=== PATIENT | male | born 1960 | race Two or more races ===

== ENCOUNTER 2025-03-29 13:50 | Outpatient (REF) | payer OTHER, SELFPAY ==
[2025-03-29 14:56] LABS: Alanine Aminotransferase 27 U/L (0-40); Albumin Level 4.2 g/dL (3.5-5.0); Alkaline Phosphatase 49 U/L (39-117); Anion Gap 11 (12-20); Aspartate Amino Transferase 28 U/L (5-37); Bilirubin Direct 0.2 mg/dL (0.0-0.5); Bilirubin Total 0.6 mg/dL (0.0-1.0); Blood Urea Nitrogen 9 mg/dL (9-16); Carbon Dioxide 29 mmol/L (22-29); Chloride 102 mmol/L (96-108); Estimated Glomerular Filt Rate > 60; Glucose Random 100 mg/dL (60-115); Potassium 4.1 mmol/L (3.3-5.1); Sodium 138 mmol/L (135-145); Total Protein 7.5 g/dL (6.5-8.0)
--- OUTSIDE RECORDS SUMMARY | 2025-03-29 15:09 | XMS_ITS | Clinical Summary ---
Author Organization 175 [facility] Address [address] [place] [address] Phone Care Team Providers Care Dispatcher Tow Truck Name Role Phone Jeff Torres MD Primary Care Provider Allergies No known active allergies Medications miscellaneous medical supply kit Use with inhaler regularly. SPACER DEVICE-ADULT 5 Active sodium,potassium ,mag sulfates (Suprep Bowel Prep Kit) 17.5-3.13-1.6 gram recon soln bowel prep kit oral solution Take 177ML by mouth for 2 doses. SEE INSTRUCTIONS PROVIDED BY OFFICE. 1 kit 5 Active cholecalciferol (VITAMIN D-3) 50 mcg (2,000 unit) tablet Take 1 tablet (2,000 Units total) by mouth 1 (one) time each day. 90 each 3 5 026 Active cyanocobalamin 2,000 mcg tablet Take 1 tablet (2,000 mcg total) by mouth 1 (one) time each day. 90 tablet 3 5 026 Active albuterol HFA (PROAIR HFA ; PROVENTIL HFA ; VENTOLIN HFA) 90 mcg/actuation inhalerIndicatio ns:Mild intermittent asthma, unspecified whether complicated Inhale 2 puffs by mouth every 4 (four) hours if needed for wheezing. Cough 6.7 g 1 5 Active nutritional drink (Ensure High Protein) liquid Take 237 mL by mouth 3 (three) times a day. 90 each 5 5 025 Active bisacodyL (DULCOLAX) 5 mg EC tablet Take 2 tablets by mouth right before beginning bowel prep. See instructions provided by the office 2 tablet 5 Active polyethylene glycol (Golytely) 236-22.74-6.74 -5.86 gram solution Take 4L by mouth once for one dose. May substitue any PEG. Starting at 6PM the night before your procedure drink 1 8oz glasses at your own pace until you complete half of the gallon. Finish 2nd half of the gallon 5 hours before your procedure. 4000 mL 5 Active Active Problems Problem Noted Date Diagnosed Date Post herpetic neuralgia 10/24/2020 Right leg claudication ([facility] V24) 01/10/2020 Excessive drinking of alcohol 01/03/2020 Asthma 02/25/2014 Marijuana dependence ([facility] V24, [facility] V28) 04/20/2008 Smoking 02/10/2008 Encounters Date Type Department Care Team Description 02/03/2025 3:40 PM EDT - 02/03/2025 11:59 PM EDT Hospital Encounter [facility] CT Scan [address] [place] [phone] Encounter for screening for malignant neoplasm of respiratory organs; Nicotine dependence, cigarettes, uncomplicated Discharge Disposition: Home or Self Care 02/03/2025 3:30 PM EDT Office Visit Lung Screening Program - [place] [address] [facility] [address] [place] [phone] Lacy Julien PA Encounter for screening for malignant neoplasm of lung in current smoker with 30 pack year history or greater (Primary Dx) 01/31/2025 3:45 PM EDT Office Visit Internal Medicine [facility] [address] [facility] [address] [place] [phone] Jeff Torres MD Dizziness (Primary Dx); Dementia, unspecified dementia severity, unspecified dementia type, unspecified whether behavioral, psychotic, or mood disturbance or anxiety ([facility] V24, [facility] V28); Smoking; Tobacco dependency 01/13/2025 Telephone Internal Medicine - [place] [address] [phone] Jeff Torres MD Torres - Medication 01/10/2025 Telephone Internal Medicine [address] [phone] Jeff Torres MD Dizziness 01/07/2025 Telephone Internal Medicine [address] [phone] Jeff Torres MD Khan: Fax labs and EKG 01/04/2025 3:15 PM EST Office Visit Internal Medicine [address] [phone] Jeff Torres MD Adult general medical examination (Primary Dx); Mild intermittent asthma, unspecified whether complicated; Marijuana dependence (CMS/HCC V24, CMS/HCC V28); Smoking; Excessive drinking of alcohol; Tobacco dependency; Malnutrition, unspecified type (CMS/HCC V24); Other abnormal glucose; Other fatigue; Encounter for lipid screening for cardiovascular disease; Vitamin D deficiency from Last 3 Months Immunizations Name Administration Dates Next Due Pneumococcal polysaccharide 23 valent (Pneumovax 23) 2yo and older 01/03/2020 Tdap Tetanus diptheria acell ular pertussis (Boostrix; Adacel) 7yo and older 06/04/2012 Surgical History Surgery Date Site/Laterality Comments OTHER SURGICAL HISTORY PROCEDURE: DENIES PREVIOUS SURGERY Medical History Medical History Date Comments Asthma DX:Asthma Family History Medical History Relation Name Comments Other: Prostate cancer Brother Other: Prostate cancer, Diab etes, hypertension, dementia Father Diabetes Paternal Grandmother Blindness Neg Hx Cataracts Neg Hx Glaucoma Neg Hx Lung cancer Neg Hx Macular degeneration Neg Hx Strabismus Neg Hx Relation Name Status Comments Brother Alive prostate cancer Father Alive dm Mother Alive dm Paternal Grandfather prostat e cancer Paternal Grandmother Social History Tobacco Use Types Packs/Day Years Used Date Smoking Tobacco: Every Day Cigarettes 0.5 48.4 Started: 1976 Smokeless Tobacco: Never Alcohol Use Standard Drinks/Week Comments Yes 0 (1 standard drink = 0.6 oz pur e alcohol) Sex and Gender Information Value Date Recorded Sex Assigned at Not on file Legal Sex Male 9:12 AM EST Gender Identity Not on file Sexual Orientation Not on file Obstetrics History Last Filed Vital Signs Vital Sign Reading Time Taken Comments Blood Pressure 138/82 01/31/2025 3:48 PM EDT Pulse 78 01/31/2025 3:48 PM EDT Temperature 36.8 ??C (98.2 ??F) 02/03/2025 3:27 PM ED T Respiratory Rate - - Oxygen Saturation 98% 01/31/2025 3:48 PM EDT Inhaled Oxygen Concentration - - Weight 45.4 kg (100 lb) 02/18/2025 10:00 AM EDT Height 160 cm (5' 3 ) 02/18/2025 10:00 AM EDT Body Mass Index 17.71 02/18/2025 10:00 AM EDT Plan of Treatment Upcoming Encounters Date Type Department Care Team ([facility] st Contact Info) Description 07/04/2025 2:30 PM EDT Office Visit Internal Medicine - [place] [address] [phone] Jeff Torres MD 175 [facility] [address] [place] [address] Health Maintenance Due Date Last Done Comments Hepatitis A Vaccines (1 of 2 - Risk 2-dose series) 1979 Zoster Vaccines (1 of 2) 2010 RSV Immunization Adult Patients (1 - Risk 60-74 years 1-dose series) 2020 Pneumococcal Vaccine: 50+ Years (2 of 2 - PCV) 01/03/2021 01/03/2020 Pneumococcal Vaccine: Pediatrics (0 to 5 Years) and At-Risk Patients (6 to 64 Years) (2 of 2 - PCV) 01/03/2021 01/03/2020 DTaP,Tdap,and Td Vaccines (2 - Td or Tdap) 06/04/2022 06/04/2012 COVID-19 Vaccine ( - 2023-2 5 season) 2024 Colorectal Cancer Screening: Colonoscopy 12/07/2024 Depression Screening 12/07/2024 HIV Screening 12/07/2024 Social Influencers of Health Screening 12/07/2024 Influenza Vaccine (Season Ended) 2025 Lung Cancer Screening (Low Dose CT) 02/03/2026 02/03/2025 Cholesterol Screening (Lipid Panel) 01/04/2030 01/04/2025, 01/03/2020 Hepatitis C Screening Completed 01/03/2020 HIB Vaccines Aged Out No longer eligi ble based on patient's age to complete this topic HPV Vaccines Aged Out No longer eligi ble based on patient's age to complete this topic Hepatitis B Vaccines Aged Out No long er eligible based on patient's age to complete this topic IPV Vaccines Aged Out No longer eligi ble based on patient's age to complete this topic MMR Vaccines Aged Out No longer eligi ble based on patient's age to complete this topic Meningococcal ACWY Vaccine Aged Out N o longer eligible based on patient's age to complete this topic Meningococcal B Vaccine Aged Out No l onger eligible based on patient's age to complete this topic RSV Immunization Patients Under 20 months Aged Out No longer eligible b ased on patient's age to complete this topic Varicella Vaccines Aged Out No longer eligible based on patient's age to complete this topic Procedures Procedure Name Priority Date/Time Associated Diagnosis Comments ECG Routine 02/04/2025 2:[address] LUNG SCREENING Routine 02/03/2025 3:4 7 PM EDT Encounter for screening for malignant neoplasm of respiratory organs Nicotine dependence, cigarettes, uncomplicated CBC WITH AUTO DIFFERENTIAL Routine 01/04/2025 3:50 PM EST Other fatigue Adult general medical examination HEMOGLOBIN A1C Routine 01/04/2025 3:50 PM EST Malnutrition, unspecified type (CMS/HCC V24) Adult general medical examination VITAMIN D 25 HYDROXY Routine 01/04/2025 3:50 PM EST Vitamin D deficiency Adult general medical examination THYROID STIMULATING HORMONE WITH REFLEX TO FREE T4 AND FREE T3 Routine 01/04/2025 3:50 PM EST Other fatigue Adult general medical examination VITAMIN B12 Routine 01/04/2025 3:50 PM EST Other fatigue Adult general medical examination COMPREHENSIVE METABOLIC PANEL Routine 01/04/2025 3:50 PM EST Adult general medical examination CBC AND DIFFERENTIAL Routine 01/04/2025 3:50 PM EST Other fatigue Adult general medical examination LIPID PANEL WITH REFLEX TO DIRECT LDL Routine 01/04/2025 3:50 PM EST Encounter for lipid screening for cardiovascular disease Adult general medical examination HM HEPATITIS C SCREENING Routine 01/03/2020 from Last 3 Months or Most Recently Relevant to Health Maintenance Results * ECG (02/04/2025 2:39 PM EDT) Jeff Torres MD ECG ORDERABLES Final Result * CT Lung Screening (02/03/2025 3:47 PM EDT) Anatomical Region Laterality Modality Chest Computed Tomogra phy 02/03/2025 3:55 PM EDT Impressions 02/03/2025 3:58 PM EDT No suspicious pulmonary nodules. ASSESSMENT: LungRADS Category2: Benign Appearance/Behavior - Continue annual screening with LDCT in 12 months Please see below for additional details of LungRADS Algorithm. Complete Lung RADS description including probabilities of malignancy and prevalence can be found at: http://www.acr.org/Quality-Safety/Resources/LungRADS LungRADS Version 1.0 Assessment Categories Release date: March 14, 2014 Category 0: Incomplete - Additional lung cancer screening CT images and/or comparison with prior CT is needed. - Prior chest CT(s) being located for comparison. - Part or all of the lungs cannot be evaluated. Category 1: Negative - Continue annual screening with LDCT in 12 months - No lung nodules - Nodule(s) with specific calcifications (complete, central, popcorn, concentric rings) and fat containing nodules Category 2: Benign Appearance/Behavior - Continue annual screening with LDCT in 12 months - Solid nodule < 6 mm or new solid nodule < 4 mm. - Part solid nodule(s) < 6 mm total diameter on baseline screening. - Ground glass nodule < 20 mm or ? 20 mm and unchanged or slowly growing. - Category 3 or 4 nodules unchanged for at least 3 months. Category 3: Probably Benign - 6 month LDCT - Solid nodule(s) ? 6 to < 8 mm at baseline OR new 4 mm to < 6 mm. - Part solid nodule(s) ? 6 mm total diameter with solid component < 6 mm OR new < 6 mm total diameter. - Ground glass nodule ? [address] or new. Category 4A: Suspicious - 3 month LDCT; PET/CT may be used when there is ? 8 mm solid component - Solid nodule(s) ? 8 to < 15 mm at baseline OR growing < 8 mm OR new 6 to < 8 mm. - Part solid nodule(s) ? 6 mm with solid component ? 6 mm to < 8 mm OR with a new or growing < 4 mm solid component. - Endobronchial nodule. Category 4B: Suspicious - Chest CT with or without contrast, PET/CT and/or tissue sampling depending on the probability of malignancy and comorbidities. PET/CT may be used when there is a ? 8 mm solid component. - Solid nodule(s) ? 15 mm OR new or growing and ? 8 mm - Part solid nodule(s) with a solid component ? 8 mm OR a new or growing ? 4 mm solid component Category 4X: Suspicious - Chest CT with or without contrast, PET/CT and/or tissue sampling depending on the probability of malignancy and comorbidities. PET/CT may be used when there is a ? 8 mm solid component. - Category 3 or 4 nodules with additional features or imaging findings that increases the suspicion of malignancy. Category S: Clinically Significant or Potentially Clinically Significant Findings (non lung cancer) Category C: Modifier for patients with a prior diagnosis of lung cancer who return to screening NOTES: 1) Negative screen: does not mean that an individual does not have lung cancer. 2) Size: nodules should be measured on lung windows and reported as the average diameter rounded to the nearest whole number; for round nodules only a single diameter measurement is necessary. 3) Size Thresholds: apply to nodules at first detection, and that grow and reach a higher size category. 4) Growth: an increase in size of > 1.5 mm. 5) Exam Category: each exam should be coded 0-4 based on the nodule(s). 6) Exam Modifiers: S and C modifiers may be added to the 0-4 category. 7) Lung Cancer Diagnosis: Once a patient is diagnosed with lung cancer, further management (including additional imaging such as PET/CT) may be performed for purposes of lung cancer staging; this is no longer screening. 8) Practice audit definitions: a negative screen is defined as categories 1 and 2; a positive screen is defined as categories 3 and 4. 10) Category 4X: nodules with additional imaging findings that increase the suspicion of lung cancer, such as spiculation, GGN that doubles in size in 1 year, enlarged lymph nodes etc. 11) Nodules with features of an intrapulmonary lymph node should be managed by mean diameter and the 0-4 numerical category classification. 12) Category 3 and 4A nodules that are unchanged on interval CT should be coded as category 2, and individuals returned to screening in 12 months. 13) LDCT = low dose chest CT. -------- FINAL REPORT -------- Dictated By: Raina Andujar Dictated Date: 02/03/2025 15:55 ET Assigned Physician: Raina Andujar Reviewed and Electronically Signed By: Raina Andujar Signed Date: 02/03/2025 15:58 ET Workstation ID: [id number] Transcribed By: Self Edit Transcribed Date: 02/03/2025 15:55 ET Narrative 02/03/2025 3:58 PM EDT History: ??64 year-old 24 pack-year current smoker, asymptomatic, for lung cancer screening. Comparison: None Technique: Helical volumetric imaging of the thorax was performed, using low- dose technique, without IV contrast. DLP: 95 mGy/cm CT dose reduction technique utilized with one or more of the following: Automated exposure control and/or adjustment of the mA and/or kV according to patient size and/or use of iterative reconstruction technique. Findings: Lungs: Emphysematous changes with few paraseptal blebs at the apices. ??Calcified granuloma left lower lobe. ??Scattered nodules throughout both lungs measuring 3 mm or less. Pleura: There are no pleural effusions. ??No calcified or noncalcified pleural plaques. Heart/Aorta: Coronary artery calcifications. Esophagus: The esophagus is not significantly thickened or dilated. ?? Lymph Nodes:There are no enlarged thoracic lymph nodes. ?? Upper Abdomen: This study was performed without contrast and with lower than standard dose. These factors reduce the sensitivity for detection of small lesions in the upper abdomen. Unremarkable. Osseous Structures: No suspicious osseous abnormalities. Procedure Note Raina Andujar MD - 02/03/2025 History: 64 year-old 24 pack-year current smoker, asymptomatic, for lungcancer screening. Comparison: None Technique: Helical volumetric imaging of the thorax was performed, usinglow-dose technique, without IV contrast. DLP: 95 mGy/cm CT dose reduction technique utilized with one or more of the following:Automated exposure control and/or adjustment of the mA and/or kV accordingto patient size and/or use of iterative reconstruction technique. Findings: Lungs: Emphysematous changes with few paraseptal blebs at the apices.Calcified granuloma left lower lobe. Scattered nodules throughout bothlungs measuring 3 mm or less. Pleura: There are no pleural effusions. No calcified or noncalcifiedpleural plaques. Heart/Aorta: Coronary artery calcifications. Esophagus: The esophagus is not significantly thickened or dilated. Lymph Nodes:There are no enlarged thoracic lymph nodes. Upper Abdomen: This study was performed without contrast and with lowerthan standard dose. These factors reduce the sensitivity for detection ofsmall lesions in the upper abdomen. Unremarkable. Osseous Structures: No suspicious osseous abnormalities. IMPRESSION: No suspicious pulmonary nodules. ASSESSMENT: LungRADS Category2: Benign Appearance/Behavior - Continue annual screeningwith LDCT in 12 months Please see below for additional details of LungRADS Algorithm. CompleteLung RADS description including probabilities of malignancy and prevalencecan be found at: http://www.acr.org/Quality-Safety/Resources/LungRADS LungRADS Version 1.0 Assessment Categories Release date: March 14, 2014 Category 0: Incomplete - Additional lung cancer screening CT images and/orcomparison with prior CT is needed. - Prior chest CT(s) being located for comparison. - Part or all of the lungs cannot be evaluated. Category 1: Negative - Continue annual screening with LDCT in 12 months - No lung nodules - Nodule(s) with specific calcifications (complete, central, popcorn,concentric rings) and fat containing nodules Category 2: Benign Appearance/Behavior - Continue annual screening withLDCT in 12 months - Solid nodule < 6 mm or new solid nodule < 4 mm. - Part solid nodule(s) < 6 mm total diameter on baseline screening. - Ground glass nodule < 20 mm or ? 20 mm and unchanged or slowlygrowing. - Category 3 or 4 nodules unchanged for at least 3 months. Category 3: Probably Benign - 6 month LDCT - Solid nodule(s) ? 6 to < 8 mm at baseline OR new 4 mm to < 6 mm. - Part solid nodule(s) ? 6 mm total diameter with solid component < 6 mmOR new < 6 mm total diameter. - Ground glass nodule ? [address] or new. Category 4A: Suspicious - 3 month LDCT; PET/CT may be used when there is ?8 mm solid component - Solid nodule(s) ? 8 to < 15 mm at baseline OR growing < 8 mm OR new 6 to< 8 mm. - Part solid nodule(s) ? 6 mm with solid component ? 6 mm to < 8 mm ORwith a new or growing < 4 mm solid component. - Endobronchial nodule. Category 4B: Suspicious - Chest CT with or without contrast, PET/CT and/ortissue sampling depending on the probability of malignancy andcomorbidities. PET/CT may be used when there is a ? 8 mm solidcomponent. - Solid nodule(s) ? 15 mm OR new or growing and ? 8 mm - Part solid nodule(s) with a solid component ? 8 mm OR a new or growing ?4 mm solid component Category 4X: Suspicious - Chest CT with or without contrast, PET/CT and/ortissue sampling depending on the probability of malignancy andcomorbidities. PET/CT may be used when there is a ? 8 mm solidcomponent. - Category 3 or 4 nodules with additional features or imaging findingsthat increases the suspicion of malignancy. Category S: Clinically Significant or Potentially Clinically SignificantFindings (non lung cancer) Category C: Modifier for patients with a prior diagnosis of lung cancerwho return to screening NOTES: 1) Negative screen: does not mean that an individual does not have lungcancer. 2) Size: nodules should be measured on lung windows and reported as theaverage diameter rounded to the nearest whole number; for round nodulesonly a single diameter measurement is necessary. 3) Size Thresholds: apply to nodules at first detection, and that grow andreach a higher size category. 4) Growth: an increase in size of > 1.5 mm. 5) Exam Category: each exam should be coded 0-4 based on the nodule(s). 6) Exam Modifiers: S and C modifiers may be added to the 0-4 category. 7) Lung Cancer Diagnosis: Once a patient is diagnosed with lung cancer,further management (including additional imaging such as PET/CT) may beperformed for purposes of lung cancer staging; this is no longerscreening. 8) Practice audit definitions: a negative screen is defined as categories1 and 2; a positive screen is defined as categories 3 and 4. 10) Category 4X: nodules with additional imaging findings that increasethe suspicion of lung cancer, such as spiculation, GGN that doubles insize in 1 year, enlarged lymph nodes etc. 11) Nodules with features of an intrapulmonary lymph node should bemanaged by mean diameter and the 0-4 numerical category classification. 12) Category 3 and 4A nodules that are unchanged on interval CT should becoded as category 2, and individuals returned to screening in 12 months. 13) LDCT = low dose chest CT. -------- FINAL REPORT -------- Dictated By: Raina Andujar Dictated Date: 02/03/2025 15:55 ET Assigned Physician: Raina Andujar Reviewed and Electronically Signed By: Raina Andujar Signed Date: 02/03/2025 15:58 ET Workstation ID: [id number] Transcribed By: Self Edit Transcribed Date: 02/03/2025 15:55 ET Mitch Zendejas MD IMG CT PROCEDURES Final Result * Thyroid stimulating hormone with reflex to free t4 and free t3 (01/04/2025 3:50 PM EST) TSH 1.68 0.40 - 4.00 mcIU/mL LAB CHEMISTRY METHOD 01/04/2025 8:10 PM EST [facility] Blood Venous blood specimen / Unknown Venipuncture / Unknown 01/04/2025 3:50 PM EST 01/04/2025 3:50 PM EST Jeff Torres MD LAB BLOOD ORDERABLES Final Resul t [facility] [address] [place] [address], [place] [phone] * (ABNORMAL) Lipid panel with reflex to direct LDL (01/04/2025 3:50 PM EST) Pathologist [facility] Cholesterol 149 0 - 200 mg/dL LAB CHEMISTRY METHOD 01/04/2025 7:35 PM EST [facility] Triglycerides 266(H) 0 - 150 mg/dL LAB CHEMISTRY METHOD 01/04/2025 7:35 PM EST [facility] HDL 57 >=40 mg/dL LAB CHEMISTRY METHOD 01/04/2025 7:35 PM EST [facility] LDL Calculated 39 0 - 100 mg/dL LAB CHEMISTRY METHOD 01/04/2025 7:35 PM EST [facility] VLDL Cholesterol Nicko 53.2 mg/dL LAB CHEMISTRY METHOD 01/04/2025 7:35 PM EST [facility] Non HDL Chol. (LDL+VLDL) 92 <145 mg/dL LAB CHEMISTRY METHOD 01/04/2025 7:35 PM [facility] Chol/HDL Ratio 2.6 0.0 - 4.4 LAB CHEMISTRY METHOD 01/04/2025 7:35 PM EST [facility] Blood Venous blood specimen / Unknown Venipuncture / Unknown 01/04/2025 3:50 PM EST 01/04/2025 3:50 PM EST Jeff Torres MD LAB BLOOD ORDERABLES Final Resul t [facility] [address] [place] [address], * (ABNORMAL) CBC auto differential (01/04/2025 3:50 PM EST) [facility] WBC 6.1 4.8 - 10.8 K/mcL LAB HEMETOLOGY METHOD 01/04/2025 6:45 PM EST [facility] RBC 4.60 4.50 - 5.50 M/mcL LAB HEMETOLOGY METHOD 01/04/2025 6:45 PM EST [facility] Hemoglobin 16.5 13.5 - 17.5 g/dL LAB HEMETOLOGY METHOD 01/04/2025 6:45 PM [facility] Hematocrit 46.7 42.0 - 54.0 % LAB HEMETOLOGY METHOD 01/04/2025 6:45 PM [facility] MCV 101.1(H) 79.0 - 98.0 FL LAB HEMETOLOGY METHOD 01/04/2025 6:45 PM [facility] MCH 35.7(H) 27.0 - 32.0 pcg LAB HEMETOLOGY METHOD 01/04/2025 6:45 PM [facility] MCHC 35.3 32.0 - 37.0 g/dL LAB HEMETOLOGY METHOD 01/04/2025 6:45 PM [facility] RDW 12.8 11.0 - 15.0 % LAB HEMETOLOGY METHOD 01/04/2025 6:45 PM [facility] Platelets 257 130 - 400 K/mcL LAB HEMETOLOGY METHOD 01/04/2025 6:45 PM [facility] MPV 9.6 7.0 - 11.0 FL LAB HEMETOLOGY METHOD 01/04/2025 6:45 PM [facility] NRBC 0.0 <1.0 % LAB HEMETOLOGY METHOD 01/04/2025 6:45 PM [facility] NRBC Absolute 0.00 <0.10 K/mcL LAB HEMETOLOGY METHOD 01/04/2025 6:45 PM [facility] Neutrophils Relative 67.8 % LAB HEMETOLOGY METHOD 01/04/2025 6:45 PM [facility] Lymphocytes Relative 17.5 % LAB HEMETOLOGY METHOD 01/04/2025 6:45 PM [facility] Monocytes Relative 10.4 % LAB HEMETOLOGY METHOD 01/04/2025 6:45 PM [facility] Eosinophils Relative 3.0 % LAB HEMETOLOGY METHOD 01/04/2025 6:45 PM EST [facility] Basophils Relative 1.0 % LAB HEMETOLOGY METHOD 01/04/2025 6:45 PM EST [facility] Immature Granulocytes Relative 0.3 % LAB HEMETOLOGY METHOD 01/04/2025 6:45 PM EST [facility] Neutrophils Absolute 4.11 1.50 - 7.00 K/mcL LAB HEMETOLOGY METHOD 01/04/2025 6:45 PM EST [facility] Lymphocytes Absolute 1.06 1.00 - 5.00 K/mcL LAB HEMETOLOGY METHOD 01/04/2025 6:45 PM EST [facility] Monocytes Absolute 0.63 0.20 - 1.00 K/mcL LAB HEMETOLOGY METHOD 01/04/2025 6:45 PM EST [facility] Eosinophils Absolute 0.18 0.00 - 0.50 K/mcL LAB HEMETOLOGY METHOD 01/04/2025 6:45 PM EST [facility] Basophils Absolute 0.06 0.00 - 0.20 K/mcL LAB HEMETOLOGY METHOD 01/04/2025 6:45 PM EST [facility] Immature Granulocytes Absolute 0.02 0.00 - 0.03 K/mcL LAB HEMETOLOGY METHOD 01/04/2025 6:45 PM EST [facility] Blood Venous blood specimen / Unknown Venipuncture / Unknown 01/04/2025 3:50 PM EST 01/04/2025 3:50 PM EST us Jeff Torres MD LAB BLOOD ORDERABLES Final Resul t [facility] [address] [place] [address], * (ABNORMAL) Vitamin D 25 hydroxy (01/04/2025 3:50 PM EST) Vit D, 25-Hydroxy 10.5(L) 30.0 - 80.0 ng/mL LAB CHEMISTRY METHOD 01/04/2025 8:28 PM EST [facility] Blood Venous blood specimen / Unknown Venipuncture / Unknown 01/04/2025 3:50 PM EST 01/04/2025 3:50 PM EST Jeff Torres MD LAB BLOOD ORDERABLES Final Resul t Performing Organization Address City/[facility]/ZIP Co de Phone Number [facility] [address] [place] [address], [place] [phone] * Hemoglobin A1c (01/04/2025 3:50 PM EST) Pathologist [facility] Hemoglobin A1C 5.1 <6.5 % LAB CHEMISTRY METHOD 01/04/2025 9:26 PM EST [facility] Mean Bld Glu Estim. 100 mg/dL LAB CHEMISTRY METHOD 01/04/2025 9:26 PM EST [facility] Blood Venous blood specimen / Unknown Venipuncture / Unknown 01/04/2025 3:50 PM EST 01/04/2025 3:50 PM EST Jeff Torres MD LAB BLOOD ORDERABLES Final Resul t Performing Organization Address [facility]/ZIP Co de Phone Number [facility] [address] [place] [address], [place] [phone] * (ABNORMAL) Vitamin B12 (01/04/2025 3:50 PM EST) Pathologist [facility] Vitamin B-12 248(L) 250 - 900 pcg/mL LAB CHEMISTRY METHOD 01/04/2025 7:35 PM EST [facility] Blood Venous blood specimen / Unknown Venipuncture / Unknown 01/04/2025 3:50 PM EST 01/04/2025 3:50 PM EST Jeff Torres MD LAB BLOOD ORDERABLES Final Resul t [facility] [address] [place] [address], * Comprehensive metabolic panel (01/04/2025 3:50 PM EST) Sodium 140 133 - 145 mmol/L LAB CHEMISTRY METHOD 01/04/2025 7:35 PM EST [facility] Potassium 4.4 3.5 - 5.5 mmol/L LAB CHEMISTRY METHOD 01/04/2025 7:35 PM [facility] Chloride 106 96 - 110 mmol/L LAB CHEMISTRY METHOD 01/04/2025 7:35 PM [facility] CO2 24 21 - 32 mmol/L LAB CHEMISTRY METHOD 01/04/2025 7:35 PM [facility] Anion Gap 10 3 - 11 LAB CHEMISTRY METHOD 01/04/2025 7:35 PM [facility] Glucose 76 70 - 100 mg/dL LAB CHEMISTRY METHOD 01/04/2025 7:35 PM [facility] BUN 11 5 - 25 mg/dL LAB CHEMISTRY METHOD 01/04/2025 7:35 PM [facility] Creatinine 0.71 0.70 - 1.30 mg/dL LAB CHEMISTRY METHOD 01/04/2025 7:35 PM [facility] eGFR 102 >=60 mL/min/1. 73m2 LAB CHEMISTRY METHOD 01/04/2025 7:35 PM [facility] Comment:Calculation based on the??Chronic Kidney Disease Epidemiology Collaboration (CKD-EPI) equation refit??without adjustment for race. BUN/Creatinine Ratio 15.5 LAB CHEMISTRY METHOD 01/04/2025 7:35 PM [facility] Calcium 9.5 8.5 - 10.5 mg/dL LAB CHEMISTRY METHOD 01/04/2025 7:35 PM [facility] AST (SGOT) 18 10 - 42 unit/L LAB CHEMISTRY METHOD 01/04/2025 7:35 PM EST [facility] ALT (SGPT) 20 10 - 60 unit/L LAB CHEMISTRY METHOD 01/04/2025 7:35 PM [facility] Alkaline Phosphatase 51 42 - 121 unit/L LAB CHEMISTRY METHOD 01/04/2025 7:35 PM [facility] Total Protein 7.5 6.0 - 8.0 g/dL LAB CHEMISTRY METHOD 01/04/2025 7:35 PM [facility] Albumin 3.9 3.2 - 5.0 g/dL LAB CHEMISTRY METHOD 01/04/2025 7:35 PM [facility] Total Bilirubin 0.5 0.0 - 1.4 mg/dL LAB CHEMISTRY METHOD 01/04/2025 7:35 PM [facility] Blood Venous blood specimen / Unknown Venipuncture / Unknown 01/04/2025 3:50 PM EST 01/04/2025 3:50 PM EST Jeff Torres MD LAB BLOOD ORDERABLES Final Resul t [facility] [address] [place] [address], * Hepatitis C Screening (01/03/2020) Pathologist [facility] Hepatitis C Screening abstracted Historical Provider HEALTH MAINTENANCE Final Result from Last 3 Months or Most Recently Relevant to Health Maintenance Insurance [facility] [employer] Care Teams Dispatcher Tow Truck Relationship Specialty Start Date End Date Jeff Torres MD [address] [place] [id number] PCP - General Internal Medicine 12/07/24
[2025-03-29 15:35] LABS: Folate 8.9 ng/mL (> or = 4.0); Vitamin B12 595 pg/mL (200-900)
== END 2025-03-29 13:51 | disposition home or self-care (01) ==
LOC: HO.LAB 13:50
PROVIDERS: Visit Provider Psychiatry & Neurology Neurology
DX: G30.9 Alzheimer's disease, unspecified (principal)
CPT/HCPCS: 36415; 80053; 82248; 82607; 82746

== ENCOUNTER 2025-04-23 08:36 | Outpatient (REF) | payer OTHER, SELFPAY ==
--- NOTE | ~2025-04-23 | MR_ITS ---
EXAMINATION: MR BRAIN WITHOUT CONTRAST CLINICAL INFORMATION: Alzheimer's dementia. Memory changes. COMPARISON: None available. TECHNIQUE: MRI of the brain was obtained using routine sequences without contrast. In addition to standard sequences, a coronal T2 FLAIR sequence was also obtained. Examination performed on a 1.5 Mikala Siemens high-field unit. FINDINGS: There is no diffusion restriction. There is no intracranial hemorrhage, acute infarction, mass effect, or edema. Ventricles, sulci, and cisterns are mildly diffusely prominent in keeping with mildly age advanced cerebral and cerebellar involutional changes. There are no asymmetric pattern of atrophy present. Hippocampal formations are normal in volume and signal. There is no atrophy identified. No shift of midline. No pathologic foci of hemosiderin deposition identified. There are numerous scattered punctate and minimally confluent foci of white matter T2 hyperintensity in the periventricular, subcortical, and hemispheric deep white matter. These foci are nonspecific but statistically most likely represent sequela of small vessel ischemia. There are most notable in the bilateral frontal white matter. Midline structures appear normally formed. Partial empty sella present. Posterior fossa structures appear normal. Cerebellar tonsils are appropriately located. Major flow voids are preserved within the skull base. The globes and orbital contents demonstrate no abnormalities. Trace mucosal thickening present in the bilateral maxillary and ethmoid sinuses. Remainder of the paranasal sinuses, mastoid air cells, and tympanic cavities are normally aerated. Extracranial soft tissues demonstrate no abnormalities. No suspicious bone marrow changes are evident. Atlantoaxial joint demonstrates mild degenerative arthrosis. MR/MR head/brain wo con IMPRESSION: 1. There is no evidence of intracranial hemorrhage, acute infarction, mass effect, or edema. 2. Minimally age advanced cerebral and cerebellar involutional changes, without evidence for asymmetric pattern of atrophy. 3. There is no hippocampal atrophy or signal abnormality. 4. Mild changes of small vessel ischemia present, most notable in the frontal regions. Electronically signed by: Doe Kong MD 04/25/2025 08:49 AM EDT
--- OUTSIDE RECORDS SUMMARY | 2025-04-23 08:40 | XMS_ITS | Clinical Summary ---
Author Organization [address] [facility] Address [address] [place] [address] Phone Care Team Providers Care Fleet Service Manager Name Role Phone Jeff Torres MD Primary Care Provider [phone] Allergies No known active allergies Medications miscellaneous [...] Post herpetic neuralgia 10/24/2020 Right leg claudication ([facility] V24) 01/10/2020 Excessive drinking of alcohol 01/03/2020 Asthma 02/25/2014 Marijuana dependence ([facility] V24, [facility] V28) 04/20/2008 Smoking 02/10/2008 Encounters Date Type Department Care Team Description 02/03/2025 3:40 PM EDT - 02/03/2025 11:59 PM EDT Hospital Encounter [facility] CT Scan [address] [place] [phone] Encounter for screening for malignant neoplasm of respiratory organs; Nicotine dependence, cigarettes, uncomplicated Discharge Disposition: Home or Self Care 02/03/2025 3:30 PM EDT Office Visit Lung Screening Program - [place] [address] [facility] [address] [place] [phone] Lacy Julien PA Encounter for screening for malignant neoplasm of lung in current smoker with 30 pack year history or greater (Primary Dx) 01/31/2025 3:45 PM EDT Office Visit Internal Medicine - [place] [address] [facility] [address] [place] [phone] Jeff Torres MD Dizziness (Primary Dx); Dementia, unspecified dementia severity, unspecified dementia type, unspecified whether behavioral, psychotic, or mood disturbance or anxiety ([facility] V24, [facility] V28); Smoking; Tobacco dependency from Last 3 Months Immunizations Name Administration [...] Upcoming Encounters Date Type Department Care Team (Late st Contact Info) Description 07/04/2025 2:30 PM EDT Office Visit Internal Medicine - [address] [phone] Jeff Torres MD [address] [phone] Health Maintenance Due Date Last Done Comments [...] Td or Tdap) 06/04/2022 06/04/2012 COVID-19 Vaccine (1 - 2023-2 5 season) 2024 Colorectal Cancer [...] of respiratory organs Nicotine dependence, cigarettes, uncomplicated LIPID PANEL WITH REFLEX TO DIRECT LDL [...] Signed Date: 02/03/2025 15:58 ET Workstation ID: [id number] Transcribed By: Self Edit Transcribed Date: 02/03/2025 [...] Signed Date: 02/03/2025 15:58 ET Workstation ID: [id number] Transcribed By: Self Edit Transcribed Date: 02/03/2025 15:55 ET us Mitch Zendejas MD [facility] CT PROCEDURES Final Result * (ABNORMAL) Lipid panel with reflex to direct LDL (01/04/2025 3:50 PM EST) Cholesterol 149 0 - 200 mg/dL LAB CHEMISTRY METHOD 01/04/2025 7:35 PM [facility] Triglycerides 266(H) 0 - 150 mg/dL LAB CHEMISTRY METHOD 01/04/2025 7:[address] [facility] HDL 57 >=40 mg/dL LAB CHEMISTRY METHOD 01/04/2025 7:35 PM [facility] LDL Calculated 39 0 - 100 mg/dL LAB CHEMISTRY METHOD 01/04/2025 7:[address] [facility] VLDL Cholesterol Nicko 53.2 mg/dL LAB CHEMISTRY METHOD 01/04/2025 7:35 PM [facility] Non HDL Chol. (LDL+VLDL) 92 <145 mg/dL LAB CHEMISTRY METHOD 01/04/2025 7:[address] [facility] Chol/HDL Ratio 2.6 0.0 - 4.4 LAB CHEMISTRY METHOD 01/04/2025 7:[address] [facility] Blood Venous blood specimen / Unknown Venipuncture / Unknown 01/04/2025 3:50 PM EST 01/04/2025 3:50 PM EST Jeff Torres MD LAB BLOOD ORDERABLES Final Resul t [facility] [address] [place] [address], * Hepatitis C Screening (01/03/2020) Hepatitis C Screening abstracted Historical Provider HEALTH MAINTENANCE Final Result from Last 3 Months or Most Recently Relevant to Health Maintenance Insurance [facility] [place] [address] Care Teams Fleet Service Manager Relationship Specialty Start Date End Date Jeff Torres MD [address] [id number] PCP - General Internal Medicine 12/07/24
== END 2025-04-23 08:37 | disposition home or self-care (01) ==
LOC: HO.MRI 08:36
PROVIDERS: Visit Provider Psychiatry & Neurology Neurology
DX: G30.9 Alzheimer's disease, unspecified (principal)
CPT/HCPCS: 70551

== ENCOUNTER → 2025-04-23 08:48 | Outpatient (BNV) | payer OTHER, SELFPAY | PROVIDERS: Visit Provider Radiology Diagnostic Radiology | DX: G30.9 Alzheimer's disease, unspecified (principal); R41.3 Other amnesia | CPT/HCPCS: 70551 ==